=== PATIENT | male | born 1995 | race Caucasian/White ===

== ENCOUNTER 2017-04-03 19:47 | Emergency (ER) | payer OTHER ==
[2017-04-03 20:10] VITALS: BP 114/59
--- NOTE | 2017-04-03 20:16 | UC ---
Back Pain HPI - HPI Summary HPI Summary: complaint of lower back pain that started approx 1 week ago back pain started after lifting heavy stones- felt a tweak then 2 days later he started to have muscle spasms aching pain started on the right side but now the entire lumbar area is painful ambulating without difficult changing positions from sitting to standing worsens the pain saw chiropractor today and was told to get a muscle relaxer chriropractor ordered x-rays which were completd this evening took some ibuprofen without relief today denies fever , incontinence and weight loss - History of Current Complaint Chief Complaint: UCBackPain Stated Complaint: LOWER BACK PAIN Time Seen by Provider: 04/03/17 20:00 Hx Obtained From: Patient - Allergies/Home Medications Allergies/Adverse Reactions: Allergies Allergy/AdvReac Type Severity Reaction Status Date / Time No Known Allergies Allergy Verified 04/03/17 20:01 Home Medications: Home Medications Ibuprofen TAB* [Advil TAB*] 400 mg PO Q6H PRN 04/03/17 [History Confirmed ] PMH/Surg Hx/FS Hx/Imm Hx Previously Healthy: Yes - Surgical History Surgical History: None - Family History Known Family History: Negative: Cardiac Disease, Hypertension, Diabetes - Social History Occupation: Employed Full-time Lives: With Family Alcohol Use: None Substance Use Type: None Smoking Status (MU): Never Smoked Tobacco Review of Systems Constitutional: Negative Skin: Negative Eyes: Negative ENT: Negative Respiratory: Negative Cardiovascular: Negative Gastrointestinal: Negative Genitourinary: Negative Motor: Negative Neurovascular: Negative Musculoskeletal: Other: - lower back pain Neurological: Negative Psychological: Negative All Other Systems Reviewed And Are Negative: Yes Physical Exam Triage Information Reviewed: Yes Appearance: No Pain Distress, Well-Nourished Vital Signs: Initial Vital Signs Temp 99.3 F 04/03/17 20:02 Pulse 59 04/03/17 20:02 Resp 16 04/03/17 20:02 BP 114/59 04/03/17 20:02 Pulse Ox 98 04/03/17 20:02 Vital Signs Reviewed: Yes Eyes: Positive: Conjunctiva Clear ENT: Positive: Pharynx normal, TMs normal Neck: Positive: Supple, No Lymphadenopathy Respiratory: Positive: Lungs clear, Normal breath sounds, No respiratory distress, No accessory muscle use Cardiovascular: Positive: RRR, No Murmur, Pulses Normal Abdomen Description: Positive: Nontender, Soft Bowel Sounds: Positive: Present Musculoskeletal: Positive: Other: - Spine have no noted deformities or signs of inflammation. Curvature of thoracic, and lumbar spine are within normal limits. Bony features of shoulders and hips are of equal height bilaterally. Posture is upright, and gait is smooth and normal. Spinous processes of T1-L5 palpable, midline, and non-tender; No step-offs. left sided paraspinal tenderness. Flexion, extension, and rotation of the remaining spinal column is within normal limits. Neurological: Positive: Alert, Other: - SLR negative patellar reflexes intact Psychological Exam: Normal Skin Exam: Normal Back Pain Course/Dx - Differential Dx/Diagnosis Differential Diagnosis/HQI/PQRI: Herniated Disc, Strain, Sprain Provider Diagnoses: lower back pain Discharge - Discharge Plan Condition: Stable Disposition: HOME Prescriptions: Cyclobenzaprine TAB* [Flexeril 10 MG TAB*] 10 mg PO BID PRN #20 tab PRN Reason: Spasms Patient Education Materials: Low Back Strain (ED) Referrals: No Primary Care Phys,NOPCP [Primary Care Provider] - [facility] [Outside] Additional Instructions: Start flexeril as directed. Do not drink alcohol or drive while taking flexeril. Please call physical therapy for further evaluation and treatment. Take ibuprofen for fever or pain. Increase fluids and rest. Please review your discharge instructions. If your symptoms do not improve please call your primary care provider or return to urgent care.
== END 2017-04-03 20:40 | disposition home or self-care (01) ==
LOC: UCCORT 19:47
DX: M54.5 Low back pain (principal)
CPT/HCPCS: 99212; G0463